=== PATIENT | female | born 2000 | race Caucasian/White ===

== ENCOUNTER 2020-03-11 18:05 | Emergency (ER) | payer OTHER ==
[2020-03-11 18:23] VITALS: BP 128/68; PULSE 88; O2SAT 96
[2020-03-11] MEDS ORDERED: TYLENOL EXTRA STRENGTH 500 MG PO ONE (19:05)
[2020-03-11] MEDS ORDERED: TYLENOL EXTRA STRENGTH 500 MG ONE (19:06)
--- NOTE | 2020-03-11 19:10 | ERPHSYRPT ---
- History of Present Illness Time Seen by Provider: 03/11/20 18:20 Source: patient Exam Limitations: no limitations Patient Subjective Stated Complaint: Pt states "I am having left shoulder and arm pain, left neck pain." Triage Nursing Assessment: Pt presented alert and oriented X 3, skin pwd pt ambulates with an upright steady gait, able to speak in clear full sentences pt in no apaprent respriatory distress. Physician History: Patient is a 20-year-old female currently 16 weeks presents to our ED with complaints of muscular tenderness to her left trapezius left lateral deltoid and arm. Patient states she awoke with the arm pain this morning. Pain described as an ache that is localized to left trapezius left shoulder and left arm. Pain reproduced with movement and palpation. Pain improved with rest. Patient does not recall trauma. No associated chest pain or shortness of breath. No calf pain or tenderness. No nausea vomiting or diaphoresis. Patient denies any vaginal discharge. No pelvic cramping. No hematuria or dysuria. Patient took Tylenol for the pain this morning which improved her symptoms. However patient has not taken another dose of Tylenol due to concerns of her . Timing/Duration: yesterday Severity: moderate Modifying Factors: Improves With: movement, acetaminophen Associated Symptoms: No nausea, No vomiting, No abdominal pain, No shortness of breath, No heartburn, No diaphoresis, No cough, No chills, No chest pain, No fever, No headaches, No loss of appetite, No malaise, No syncope, No seizure Allergies/Adverse Reactions: No Known Drug Allergies Allergy (Verified 03/11/20 18:23) Home Medications: Levothyroxine Sodium 75 mcg PO DAILY 03/11/20 [History] Vits W-Ca,Fe,FA(<1Mg) [] 1 each PO DAILY 03/11/20 [History] Hx Tetanus, Diphtheria Vaccination/Date Given: Yes Hx Influenza Vaccination/Date Given: No Hx Pneumococcal Vaccination/Date Given: No Immunizations Up to Date: Yes Travel Risk - International Travel Have you traveled outside of the country in past 3 weeks: No - Coronavirus Screening Are you exhibiting any of the following symptoms?: No Close contact with a COVID-19 positive Pt in past 14-21 Days: No - Review of Systems Constitutional: No Symptoms, No Fever, No Chills Eyes: No Symptoms Ears, Nose, & Throat: No Symptoms Respiratory: No Symptoms, No Cough, No Dyspnea Cardiac: No Symptoms, No Chest Pain, No Edema, No Syncope Abdominal/Gastrointestinal: No Symptoms, No Abdominal Pain, No Nausea, No Vomiting, No Diarrhea Genitourinary Symptoms: No Symptoms, No Dysuria Musculoskeletal: No Symptoms, No Back Pain, No Neck Pain Skin: No Symptoms, No Rash Neurological: No Symptoms, No Dizziness, No Focal Weakness, No Sensory Changes Psychological: No Symptoms Endocrine: No Symptoms Hematologic/Lymphatic: No Symptoms Immunological/Allergic: No Symptoms All Other Systems: Reviewed and Negative - Past Medical History Pertinent Past Medical History: Yes Neurological History: No Pertinent History ENT History: No Pertinent History Cardiac History: No Pertinent History Respiratory History: No Pertinent History Endocrine Medical History: Hypothyroidism Musculoskeletal History: No Pertinent History GI Medical History: No Pertinent History History: No Pertinent History Psycho-Social History: No Pertinent History Female Reproductive Disorders: No Pertinent History - Past Surgical History Past Surgical History: Yes Other Surgical History: tonsil - Social History Smoking Status: Never smoker Exposure to second hand smoke: No Drug Use: none Patient Lives Alone: No - Female History Hx Last Menstrual Period: 11/23/2019 Hx Now: Yes Expected Date of Delivery: 08/28/20 - Nursing Vital Signs Nursing Vital Signs: Initial Vital Signs Temperature 97.9 F 03/11/20 18:14 Pulse Rate 88 03/11/20 18:14 Respiratory Rate 22 03/11/20 18:14 Blood Pressure 128/68 03/11/20 18:14 O2 Sat by Pulse Oximetry 96 03/11/20 18:14 Pain Scale Pain Intensity 6 - Physical Exam General Appearance: no apparent distress, alert Eye Exam: PERRL/EOMI, eyes nml inspection Ears, Nose, Throat Exam: normal ENT inspection, TMs normal, pharynx normal, moist mucous membranes Neck Exam: normal inspection, non-tender, supple, full range of motion Respiratory Exam: normal breath sounds, lungs clear, No respiratory distress Cardiovascular Exam: regular rate/rhythm, normal heart sounds, normal peripheral pulses, other (Negative Elvis test bilaterally.) Gastrointestinal/Abdomen Exam: soft, normal bowel sounds, No tenderness, No mass Pelvic Exam: not done, other (Transabdominal heart tones revealed a rate of 144.) Back Exam: normal inspection, normal range of motion, No CVA tenderness, No vertebral tenderness Extremity Exam: normal inspection, normal range of motion, pelvis stable, other (Negative Homans' sign bilaterally. No lower extremity pitting edema.) Neurologic Exam: alert, oriented x 3, cooperative, normal mood/affect, nml cerebellar function, nml station & gait, sensation nml, No motor deficits Skin Exam: normal color, warm, dry, No rash Lymphatic Exam: No adenopathy SpO2 Interpretation: normal SpO2: 96 O2 Delivery: Room Air - Course Nursing assessment & vital signs reviewed: Yes EKG Interpreted by Me: RATE ([id number]), Sinus Rhythm, NORMAL AXIS, NORMAL INTERVALS Ordered Tests: Medication Summary Discontinued Medications Generic Name Dose Route Start Last Admin Trade Name Freq PRN Reason Stop Dose Admin Acetaminophen 1,000 mg 03/11/20 19:05 03/11/20 19:06 Tylenol Extra Strength 500 Mg PO 03/11/20 19:06 1,000 mg STAT ONE Administration Acetaminophen Confirm 03/11/20 19:06 Tylenol Extra Strength 500 Mg Administered 03/11/20 19:07 Dose 1,000 mg .ROUTE .[facility]-MED ONE - Progress Progress: improved Progress Note: 03/11/20 19:35 Patient received a dose of Tylenol as well as a left upper extremity sling. Symptoms improved. No indication for further work-up at this time. No bony pain or tenderness. Patient likely slept on her arm while sleeping overnight. Extremities are neurovascular intact distally. No complications or concerns related to her . Counseled pt/family regarding: diagnosis, need for follow-up - Departure Departure Disposition: Home Clinical Impression: Muscle strain Condition: Stable Critical Care Time: No Referrals: MARTINA REESE [ACTIVE STAFF] - Additional Instructions: Discharge/Care Plan JOSEPH FLOYD was seen on 03/11/20 in the Emergency Room. The patient was counseled regarding Diagnosis,Lab results, Imaging studies, need for follow up and when to return to the Emergency Room. Prescriptions given: Discharge Note I have spoken with the patient and/or caregivers. I have explained the patient's condition, diagnosis and treatment plan based on the information available to me at this time. I have answered the patient's and/or caregiver's questions and addressed any concerns. The patient and/or caregivers have as good understanding of the patient's diagnosis, condition and treatment plan as can be expected at this point. The vital signs have been stable. The patient's condition is stable and appropriate for discharge from the emergency department. The patient will pursue further outpatient evaluation with the primary care physician or other designated or consulting physician as outlined in the discharge instructions. The patient and/or caregivers are agreeable to this plan of care and follow-up instructions have been explained in detail. The patient and/or caregivers have received these instruction. The patient/and or caregivers are aware that any significant change in condition or worsening of symptoms should prompt an immediate return to this or the closest emergency department or call 911.
== END 2020-03-11 19:20 | disposition home or self-care (01) ==
LOC: ED 18:05
DX: S46.911A Strain of unspecified muscle, fascia and tendon at shoulder and upper arm level, right arm, initial encounter (principal); M25.512 Pain in left shoulder; M79.602 Pain in left arm; M54.2 Cervicalgia; Z3A.16 16 weeks gestation of pregnancy
CPT/HCPCS: 99283; A9270-GY